=== PATIENT | male | born 1945 | race Caucasian/White ===

== ENCOUNTER 2017-07-16 09:49 | Day surgery (SDC) | payer MEDICARE, BC ==
[2017-07-16] VITALS (8 sets, daily range): BP systolic 113–153; BP diastolic 47–89
[~2017-07-16] VITALS: Ht 180.3 cm; Wt 82.1 kg
--- NOTE | 2017-07-16 06:27 | Pre-Procedure Note/Attestation ---
Pre-Procedure Note/Attestation Complete Prior to Procedure Planned Procedure: right - Removal of cataract and placement of intraocular lens, right eye Procedure Narrative: Removal of cataract and placement of intraocular lens, right eye Indications for Procedure Pre-Operative Diagnosis: Cataract, combined, right eye Attestation I attest that I discussed the nature of the procedure; its benefits; risks and complications; and alternatives (and the risks and benefits of such alternatives ), prior to the procedure, with the patient (or the patient's legal outbound telemarketing representative). I attest that, if there was a reasonable possibility of needing a blood transfusion, the patient (or the patient's legal outbound telemarketing representative) was given the [place] [employer] [facility] standardized written summary, pursuant to the [place] Blood Safety Act ([place] Health and Safety Code # 1645, as amended). I attest that I re-evaluated the patient just prior to the surgery and that there has been no change in the patient's H&P, except as documented below: Carlton Espinosa MD Jul 16, 2017 06:27
[~2017-07-16 09:49] MED LIST: Acetylcholine Injection (OR) ONE; BSS 15ml BTL ONE; BSS 500ml btl ONE; Bupivacaine 0.75% 30ml vial INJ ONE; Dexamethasone 4mg/ml vial ONE; EPINEPHrine 1mg/1ml Amp ONE; Fluorescein Strips ONE; Lidocaine 1% MPF 10mg/ml 5ml ONE; Lidocaine 2% MPF 5ml Vial INJ ONE; Maxitrol Opth Oint 3.5gm ONE; Povidone-Iodine 5% opth solution ONE; Pred Forte 1% Opth Susp 1ml ONE; Sodium Hyaluronate 10 mg/ml 0.85ml ONE; Tetracaine 0.5% Opth 4ml Soln ONE; Timolol 0.5% Op Soln 2.5ml ONE
[2017-07-16] MEDS ORDERED: Ciprofloxacin Opth Soln 2.5ml ONE (10:03)
[2017-07-16] MEDS ORDERED: Akten 3.5% 1ml Btl ONE (10:03)
[2017-07-16] MEDS ORDERED: Phenylephrine 10% Opth Soln 5ml ONE (10:03)
[2017-07-16] MEDS ORDERED: Cyclopentolate 1% Opth Sol 2ml ONE (10:03)
[2017-07-16] MEDS ORDERED: Tropicamide 1% Opth 15ml Soln ONE (10:04)
[2017-07-16] MEDS: Tropicamide 1% Opth 15ml Soln RIGHT EYE SCH ×3 (10:17→10:46)
[2017-07-16] MEDS: Phenylephrine 10% Opth Soln 5ml RIGHT EYE SCH ×3 (10:18→10:46)
[2017-07-16] MEDS: Ciprofloxacin Opth Soln 2.5ml RIGHT EYE SCH ×3 (10:18→10:46)
[2017-07-16] MEDS: Akten 3.5% 1ml Btl RIGHT EYE SCH ×3 (10:18→10:46)
[2017-07-16] MEDS: Cyclopentolate 1% Opth Sol 2ml RIGHT EYE SCH ×3 (10:18→10:46)
[2017-07-16] MEDS ORDERED: FERROUS SULFAT325 M2 ORAL (10:46)
[2017-07-16] MEDS ORDERED: VITAMIN B-1100 MG ORAL (10:46)
[2017-07-16] MEDS ORDERED: FOLIC ACID1 MG ORAL (10:46)
[2017-07-16] MEDS ORDERED: MULTIVITAMINS1 EA14 PO (10:46)
[2017-07-16] MEDS ORDERED: PROPRANOLOL HCL10 MG ORAL (10:46)
[2017-07-16] MEDS ORDERED: SODIUM BICARBO650 MG PO (10:46)
[2017-07-16] MEDS ORDERED: GLUCOSAMINE &1 EACH PO (10:46)
[2017-07-16] MEDS ORDERED: TRAMADOL HCL100 M2 ORAL (10:46)
[2017-07-16] MEDS ORDERED: EPINEPHrine 1mg/1ml Amp ONE (11:33)
[2017-07-16] MEDS ORDERED: BSS 15ml BTL ONE (11:34)
--- NOTE | 2017-07-16 11:43 | Anethesia Preoperative Eval ---
Anesthesia Pre-op PMH/ROS General Date of Evaluation: Jul 16, 2017 Time of Evaluation: 11:42 Anesthesiologist: tres ASA Score: ASA 2 Mallampati Score Class I : Soft palate, uvula, fauces, pillars visible Class II: Soft palate, uvula, fauces visible Class III: Soft palate, base of uvula visible Class IV: Only hard plate visible Mallampati Classification: Class II Surgeon: jarrett Diagnosis: cataract Surgical Procedure: cataract extraction with IOL Anesthesia History: none Family History: no anesthesia problems Allergies: Coded Allergies: No Known Allergies (Unverified , 07/16/17) Medications: see eMAR Past Medical History Cardiovascular: Reports: HTN, Denies: CAD, [place], valve dz, arrhythmia, other Pulmonary: Reports: asthma, COPD, ANN Gastrointestinal/Genitourinary: Denies: GERD, CRI, ESRD, other Neurologic/Psychiatric: Denies: dementia, CVA, depression/anxiety, TIA, other Endocrine: Denies: DM, hypothyroidism, steroids, other HEENT: Reports: cataract (L), cataract (R) Hematology/Immune: Denies: anemia, DVT, bleeding disorder, other Musculoskeletal/Integumentary: Denies: OA, RA, DJD, DDD, edema, other Other: obesity PSxH Narrative: hernia surgery Anesthesia Pre-op Phys. Exam Physician Exam Last Vital Signs Date Time Temp Pulse Resp B/P (MAP) Pulse Ox O2 Delivery O2 Flow Rate FiO2 07/16/17 10:37 98.7 65 18 142/86 100 Room Air 98.7 Constitutional: NAD Neurologic: CN 2-12 intact Cardiovascular: RRR Respiratory: CTA Gastrointestinal: S/NT/ND Airway Exam Mallampati Classification 3 Mallampati Score: Class III MO: full ROM: full Teeth: missing - front incisior DAIJA SANCHEZ DRIVER MESSENGER Jul 16, 2017 11:43
[2017-07-16] MEDS ORDERED: fentaNYL 100 mcg/2 mL IV PRN (11:45)
[2017-07-16] MEDS ORDERED: NS Irrig 1000ml ONE (12:00)
[2017-07-16] MEDS ORDERED: fentaNYL 100 mcg/2 mL IV ONE (12:00)
[2017-07-16] MEDS ORDERED: Sterile Water Irrig 1000ml IRRIG ONE (12:00)
[2017-07-16] MEDS ORDERED: LR 1000ml ONE (12:00)
[2017-07-16] MEDS ORDERED: Midazolam 2mg/2ml Inj ONE (12:00)
--- NOTE | 2017-07-16 12:31 | Discharge Instructions ---
Discharge Instructions Discharge Instructions Follow Up Orders Keep shield on at all times except to place eye drops Continue preoperative eye drops followup tomorrow in Dr Espinosa's office. Sooner as needed Return to Work/School on: Jul 16, 2017 For Congestive Heart Failure Reminder Report to your physician any weight gain of 5 pounds or more in one week. Carlton Espinosa MD Jul 16, 2017 12:31
[2017-07-16] MEDS ORDERED: Sodium Hyaluronate 10 mg/ml 0.85ml ONE (12:32)
--- NOTE | 2017-07-16 12:33 | Immediate Post-Op Evaluation ---
Immediate Post-Op Evalulation Immediate Post-Op Evalulation Procedure: cataract extraction right eye Date of Evaluation: Jul 16, 2017 Time of Evaluation: 12:33 IV Fluids: 300 Blood Pressure Systolic: 135 Blood Pressure Diastolic: 89 Pulse Rate: 66 Respiratory Rate: 14 O2 Sat by Pulse Oximetry: 98 Temperature (Fahrenheit): 98.2 Pain Score (1-10): 0 Nausea: No Vomiting: No Complications none Patient Status: awake, reacts, patent Hydration Status: adequate Drug: none TARRILLION,DAIJAZOLTAN ALLISON Jul 16, 2017 12:33
--- NOTE | 2017-07-16 12:34 | Brief Operative Note ---
Immediate Post Operative Note Operative Note Chief Complaint: Painless progressive decreased vision 2/2 cataract Pre-op Diagnosis: Cataract, combined, right eye Procedure: Phaco PC IOL, OD Post-op Diagnosis: same as pre-op Surgeon: Corey Espinosa MD Anesthesiologist: Hanan Marion CRNA Specimen: none Complications: none Fluids: as noted in chart Implant(s) used?: Yes - paula [id number] 16.5 Carlton Espinosa MD Jul 16, 2017 12:34
--- NOTE | 2017-07-16 13:35 | 48 Hour Post Anesthesia Eval ---
Post Anesthesia Evaluation Procedure: cataract extraction right eye Date of Evaluation: Jul 16, 2017 Time of Evaluation: 13:34 Blood Pressure Systolic: 144 0: 72 Pulse Rate: 67 O2 Sat by Pulse Oximetry: 99 Airway: patent Nausea: No Vomiting: No Hydration Status: adequate Cardiopulmonary Status: stable Mental Status/LOC: patient returned to baseline Follow-up Care/Observations: na Post-Anesthesia Complications: none Follow-up care needed: N/A DAIJA SANCHEZ CRNA Jul 16, 2017 13:34
--- NOTE | 2017-07-16 19:46 | Operative Note - Dictated ---
DATE OF OPERATION: 07/16/2017 SURGEON: Carlton Espinosa M.D. RETAIL STORE ASSOCIATE SURGEON: None. ANESTHESIOLOGIST: Hanna Marion CRNA. ANESTHESIA: Local/standby/monitored anesthesia care. PREOPERATIVE DIAGNOSIS: Cataract, combined, right eye. POSTOPERATIVE DIAGNOSIS: Cataract, combined, right eye. PROCEDURES: 1. Phacoemulsification of cataract, right eye. 2. Placement of posterior chamber intraocular lens, right eye (model Maria [id number], power 16.5). SPECIMENS: None. COMPLICATIONS: None. INDICATIONS FOR SURGERY: The patient has had the painless progressive decrease in the visual acuity in the right eye secondary to cataract. The patient understands risks of surgery including infection, bleeding, need for further surgery, loss of vision, no improvement in vision, loss of the eye, loss of life, glaucoma, retinal detachment, and understands these risks and elects to proceed with surgery. FINDINGS: The patient had a +3 nuclear sclerotic cataract as well as a +2 posterior polar cataract. OPERATIVE NOTE: After informed consent was obtained, the patient was brought to the operating room and placed in the supine position. Cardiac and respiratory monitors were attached. A time-out was performed and all criteria were met and everyone in the room agreed. The right eye was draped and prepped in sterile manner for ocular surgery. A lid speculum was placed in the eye. A 1% lidocaine preservative-free was injected at the 9 o'clock limbus. A conjunctiva peritomy from approximately 8:30 to 9:30 was made and dissected posteriorly. Hemostasis was maintained with bipolar cautery. A 2.6 mm limbal incision was made centered at approximately 9 o'clock and dissected anteriorly. A paracentesis was made at approximately 12 o'clock and Shugarcaine was injected into the anterior chamber followed by Healon. The anterior chamber was then entered using a 2.6 mm keratome through the limbal incision. An anterior capsulorrhexis was then performed. With hydrodissection and hydrodelineation, the lens was then performed. The lens was then phacoemulsified using a divide and conquer four-quadrant technique. Residual cortical material was then aspirated. The lens was taken from its package, placed into the cartridge, and Healon was injected into the anterior chamber and capsular bag. The tip of the cartridge was brought up to the limbal incision and the lens was injected into the anterior chamber and into the capsular bag and centered nicely with a Sinskey hook. Both haptics and optic were in the capsular bag. Healon was then aspirated from the anterior chamber and capsular bag. One 10-0 nylon interrupted suture was then placed through the limbal incision and the knot was rotated and buried. The paracentesis site was hydrated and closed. The conjunctiva was then closed with forceps cautery. The lid speculum and drapes were removed from the eye and drops of Pred Forte and ciprofloxacin were applied to the eye followed by Maxitrol ointment and then a shield. The patient tolerated the procedure well and left the operating room awake, alert, and in stable condition. Carlton Espinosa M.D. DR: ZHOU JOB#: [id number] CC:
== END 2017-07-16 13:30 | disposition home or self-care (01) ==
LOC: SUR 09:49
DX: H25.11 Age-related nuclear cataract, right eye (principal); H25.041 Posterior subcapsular polar age-related cataract, right eye; M19.90 Unspecified osteoarthritis, unspecified site; I10 Essential (primary) hypertension; G62.9 Polyneuropathy, unspecified; F41.9 Anxiety disorder, unspecified; F10.10 Alcohol abuse, uncomplicated; J43.9 Emphysema, unspecified; D64.9 Anemia, unspecified; E55.9 Vitamin D deficiency, unspecified; M05.831 Other rheumatoid arthritis with rheumatoid factor of right wrist; J44.9 Chronic obstructive pulmonary disease, unspecified; G47.33 Obstructive sleep apnea (adult) (pediatric)
CPT/HCPCS: 66984; J0171; J1100; J2250; J3010; J7120; V2632; 94003; 94150